=== PATIENT | female | born 1990 | race African-American/Black ===

== ENCOUNTER 2020-03-16 18:05 | Emergency (ER) | payer OTHER ==
[~2020-03-16] VITALS: Ht 160 cm; Wt 86.2 kg
[2020-03-16 23:25] VITALS: BP 115/80
== END 2020-03-17 00:20 | disposition home or self-care (01) ==
LOC: ER 18:07
DX: O98.511 Other viral diseases complicating pregnancy, first trimester (principal); U07.1 COVID-19; Z3A.00 Weeks of gestation of pregnancy not specified
CPT/HCPCS: 36415; 71045; 81002; 81025; 87426

== ENCOUNTER 2021-10-03 04:03 | Emergency (ER) | payer MEDICAID, OTHER ==
[~2021-10-03] VITALS: Ht 160 cm; Wt 99.8 kg
[2021-10-03 07:52] VITALS: BP 133/69
== END 2021-10-03 08:32 | disposition home or self-care (01) ==
LOC: ER 04:03
DX: Z00.00 Encounter for general adult medical examination without abnormal findings (principal); Z20.822 Contact with and (suspected) exposure to COVID-19
CPT/HCPCS: 36415

== ENCOUNTER 2021-10-07 07:08 | Emergency (ER) | payer MEDICAID ==
[2021-10-07 07:35] VITALS: BP 112/61
[2021-10-07] MEDS ORDERED: IBUP800T27 PO (09:18)
== END 2021-10-07 09:09 | disposition home or self-care (01) ==
LOC: ER 07:08
DX: S90.32XA Contusion of left foot, initial encounter (principal); Z98.51 Tubal ligation status; Z20.822 Contact with and (suspected) exposure to COVID-19; W18.39XA Other fall on same level, initial encounter; Y93.89 Activity, other specified; Y92.89 Other specified places as the place of occurrence of the external cause; Y99.8 Other external cause status
CPT/HCPCS: 36415; 73630

== ENCOUNTER 2023-07-28 03:17 | Emergency (ER) | payer MEDICAID ==
[~2023-07-28] VITALS: Ht 160 cm; Wt 75.6 kg
[~2023-07-28 03:17] MED LIST: IBUP-1456 PO
[2023-07-28 03:30] VITALS: BP 107/62; PULSE 68; RESP 16; TEMP 97.8; O2SAT 100
[2023-07-28] MEDS ORDERED: IBUP1TAB4 PO (04:43)
[2023-07-28] MEDS: IBUPROFEN 400 MG TAB PO ONE (05:08)
== END 2023-07-28 05:15 | disposition home or self-care (01) ==
LOC: ER 03:17
DX: M79.641 Pain in right hand (principal); Z98.51 Tubal ligation status
CPT/HCPCS: 73130